=== PATIENT | male | born 1985 | race Caucasian/White ===

== ENCOUNTER 2021-12-27 08:00 | Outpatient (CLI) | payer OTHER | END 2021-12-27 23:59 | disposition home or self-care (01) | LOC: LAB.N 08:00 | PROVIDERS: ATTEND Family Medicine | DX: R07.0 Pain in throat (principal); J06.9 Acute upper respiratory infection, unspecified | CPT/HCPCS: 87070 ==

== ENCOUNTER 2022-09-15 09:59 | Outpatient (CLI) | payer OTHER ==
--- NOTE | 2022-09-15 20:59 | MRI Report ---
PROCEDURE: ANKLE WO - LT INDICATIONS: PAIN IN LEFT ANKLE TECHNIQUE: Noncontrast Magnetic Resonance Imaging (MRI) of the ankle/hindfoot was performed utilizing the follow ing sequences: sagittal T1 spin echo, sagittal T2 fast spin echo with fat saturation, axial PD fast s pin echo, axial T2 fast spin echo with fat saturation, coronal T1 spin echo, and coronal T2 fast spin echo with fat saturation. COMPARISON: None FINDINGS: Image quality: Excellent. Bones and joints: No acute trabecular bone injury or fracture. No hindfoot coalition. The ankle mortise is maintained. No osteochondral defect is seen at the talar dome. Focal mild to moderate degenerative changes at th e 4th tarsometatarsal joints with subchondral edema and subchondral cystic changes. Medial structures: The deltoid ligament and the spring ligament complex are intact. There is mild distal posterior tibia lis tenosynovitis. The flexor digitorum longus and flexor hallucis longus tendons are intact. The pos terior tibial neurovascular bundle appears normal within the tarsal tunnel, without extrinsic mass ef fect. Lateral structures: The anterior and posterior distal tibiofibular ligaments are intact. Remote prior low-grade sprain of the anterior talofibular ligament. The calcaneofibular ligament and posterior talofibular ligament a re intact. The peroneus brevis and longus tendons are intact. The sinus tarsi demonstrates normal fat ty signal. Anterior structures: The tibialis anterior, extensor hallucis longus, and extensor digitorum longus tendons appear intact. Posterior and plantar structures: The Achilles tendon is intact. There is thickening of the proximal plantar fascia without surrounding edema, consistent with chronic fasciopathy. No disproportionate atrophy of the abductor digiti minim i muscle. IMPRESSION: 1.Focal mild to moderate degenerative changes of the 4th tarsometatarsal joints with subchondral cyst ic changes and subchondral edema. 2.Mild distal posterior tibialis tenosynovitis. 3.Remote prior low-grade sprain of the anterior talofibular ligament. 4.Mild chronic proximal plantar fasciitis. Reviewed by: Quentin Cervantes MD on 09/15/2022 8:58 PM PDT Approved by: Quentin Cervantes MD on 09/15/2022 8:58 PM PDT Station ID: [id number]
== END 2022-09-15 10:00 | disposition home or self-care (01) ==
LOC: DI 09:59
DX: M19.072 Primary osteoarthritis, left ankle and foot (principal); S93.492A Sprain of other ligament of left ankle, initial encounter; M65.9 Synovitis and tenosynovitis, unspecified; M72.2 Plantar fascial fibromatosis